=== PATIENT | male | born 2000 | race Caucasian/White ===

== ENCOUNTER 2023-06-05 08:21 | Emergency (ER) | payer OTHER ==
[2023-06-05] MEDS ORDERED: IBUPROFEN 400 MG TAB ONE (08:52)
[2023-06-05] MEDS ORDERED: IBUPROFEN 200 MG TAB PO ONE (08:52)
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
--- NOTE | 2023-06-05 09:36 | RAD REPORT ---
EXAM DESCRIPTION: RAD - Ribs Left - 06/05/2023 9:15 am CLINICAL HISTORY: Pain;Swelling COMPARISON: Chest Single View dated 06/05/2023 FINDINGS: Several mildly to moderately displaced left lateral rib fractures are seen, involving ribs left 6, 7, 8, 9 and 10. Small amount of left pleural fluid suspected. A minimal pneumothorax is susp ected along the left superolateral apex.
[2023-06-05] MEDS ORDERED: ONDANSETRON 4 MG/2 ML VIAL ONE (10:00)
[2023-06-05] MEDS ORDERED: MORPHINE 4 MG/ML SYR ONE (10:00)
[2023-06-05 10:04] LABS: Absolute Lymphocytes (CBC) 1.3 K/uL (0.7-4.9); Hematocrit 40.7 % (39.6-49.0); Lymphocytes % 19.2 % (15.3-44.8); MPV 7.9 fL (7.6-11.3); Platelets 196 thou/uL (152-406); RBC Red Blood Cell Count 4.63 M/uL (4.33-5.43)
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
[2023-06-05 10:45] LABS: Potassium 3.8 mEq/L (3.5-5.1)
[2023-06-05] MEDS ORDERED: FENTANYL CITR 100 MCG/2 ML ONE (15:36)
[2023-06-05 16:01] VITALS: O2SAT 99
[2023-06-05 16:04] VITALS: BP 122/84
== END 2023-06-05 15:26 | disposition short-term general hospital (02) ==
LOC: ER 08:21
DX: S36.039A Unspecified laceration of spleen, initial encounter (principal); S22.42XA Multiple fractures of ribs, left side, initial encounter for closed fracture; K66.1 Hemoperitoneum; Y09 Assault by unspecified means
CPT/HCPCS: 85025; 80048; 36415; 70450; 72125; 71260; 74177; 71045; 71100; 96375; 96374; 99285; Q9967; J3010; J2405